=== PATIENT | male | born 1975 | race Two or more races ===

== ENCOUNTER 2018-01-23 09:43 | Day surgery (SDC) | payer OTHER ==
[2018-01-23] MEDS: SOD CHLORIDE 0.9% 1,000 ML IV (10:00)
[2018-01-23] MEDS: CEFAZOLIN 1 GM/50 ML (PMX) 50 ML IVPB (10:00)
[2018-01-23] MEDS ORDERED: POLYMYXIN/BACITRACIN 1L IRRIG (10:50)
[2018-01-23] MEDS ORDERED: MIDAZOLAM 1 MG/ML 2 ML INJ (11:00)
[2018-01-23] MEDS: BUPIVACAINE 0.25% (MPF) 30 ML INJ (11:04)
[2018-01-23 11:35] LABS: ADD MAN DIFF? NO
[2018-01-23 11:42] LABS: ALANINE AMINOTRANSFERASE 45 IU/L (13-69); ALKALINE PHOSPHATASE 131 IU/L (42-121); ANION GAP 10 (8-16); ASPARTATE AMINO TRANSFERASE 53 IU/L (15-46); BILIRUBIN,INDIRECT 1.3 mg/dl (0-1.1); BILIRUBIN,TOTAL 1.3 mg/dl (0.2-1.3); CARBON DIOXIDE 27 mmol/L (21-31); CHLORIDE 109 mmol/L (97-110); GLUCOSE 84 mg/dl (70-220); INR 1.24; PROTIME 15.8 Sec (11.9-14.9); PT RATIO 1.2
[2018-01-23 11:43] LABS: ALBUMIN 3.7 g/dl (3.3-4.9); ALBUMIN/GLOBULIN RATIO 1.02; BLOOD UREA NITROGEN 9 mg/dl (7-20); CREATININE 0.64 mg/dl (0.61-1.24); POTASSIUM 3.9 mmol/L (3.5-5.1); SODIUM 142 mmol/L (135-144); TOTAL PROTEIN 7.3 g/dl (6.1-8.1)
[2018-01-23 11:44] LABS: WHITE BLOOD COUNT 3.7 10^3/ul (4.8-10.8)
[2018-01-23 11:44] LABS: ABNORMAL IP MESSAGE 1; BASOPHILS % 0.5 % (0.0-2.0); EOSINOPHILS # 0.1 10^3/ul (0.0-0.5); EOSINOPHILS % 3.8 % (0.0-7.0); HEMATOCRIT 43.4 % (42.0-52.0); HEMOGLOBIN 14.6 g/dl (14.0-18.0); LYMPHOCYTES # 0.9 10^3/ul (0.8-2.9); LYMPHOCYTES % 25.1 % (15.0-51.0); MEAN CORPUSCULAR HEMOGLOBIN 28.2 pg (29.0-33.0); MEAN CORPUSCULAR HGB CONC 33.6 g/dl (32.0-37.0); MEAN CORPUSCULAR VOLUME 83.9 fl (82.0-101.0); MEAN PLATELET VOLUME 10.7 fl (7.4-10.4); MONOCYTE # 0.5 10^3/ul (0.3-0.9); MONOCYTES % 12.6 % (0.0-11.0); NEUTROPHIL # 2.1 10^3/ul (1.6-7.5); NEUTROPHILS % 57.7 % (39.0-77.0); POSITIVE DIFF @See below; RED BLOOD COUNT 5.17 10^6/ul (4.70-6.10)
[2018-01-23] MEDS ORDERED: GLYCOPYRROLATE 0.4 MG INJ (12:04)
[2018-01-23] MEDS ORDERED: CEFAZOLIN 1 GM INJ (12:04)
[2018-01-23] MEDS ORDERED: PROPOFOL 20 ML (12:04)
[2018-01-23] MEDS ORDERED: NEOSTIGMINE 3 MG/3 ML SYRINGE (12:04)
[2018-01-23] MEDS ORDERED: ROCURONIUM 50 MG INJ (12:04)
[2018-01-23] MEDS ORDERED: LIDOCAINE 2% (SDV) 5 ML INJ (12:04)
[2018-01-23] MEDS ORDERED: ONDANSETRON 4 MG INJ (12:05)
[2018-01-23 12:06] LABS: PLATELET COUNT 46 10^3/UL (140-415)
[2018-01-23 12:07] LABS: HOLD TRANSMISSIONS 1
[2018-01-23] MEDS ORDERED: HYDROmorphONE (0.2 MG/ML) 10ML SYG IV (12:30)
[2018-01-23] MEDS ORDERED: DIPHENHYDRAMINE 50 MG INJ IV (12:30)
[2018-01-23] MEDS ORDERED: METOCLOPRAMIDE 10 MG INJ IV (12:30)
[2018-01-23] MEDS ORDERED: FENTAnyl 50 MCG/ML VIAL IV (12:30)
[2018-01-23] MEDS ORDERED: ONDANSETRON 4 MG INJ IV (12:30)
[2018-01-23] MEDS ORDERED: MEPERIDINE 25 MG INJ IV (12:30)
[2018-01-23 12:47] LABS: PARTIAL THROMBOPLASTIN TIME 37.5 Sec (25.0-35.0)
[2018-01-23] MEDS: HYDROmorphONE (0.2 MG/ML) 10ML SYG IV (13:09)
[2018-01-23] MEDS: HYDROCODONE/APAP (5/325) TAB PO (13:14)
== END 2018-01-23 15:15 | disposition home or self-care (01) ==
LOC: SDS 09:43
DX: K40.91 Unilateral inguinal hernia, without obstruction or gangrene, recurrent (principal)
CPT/HCPCS: 49520; 80053; 85025; 85610; 85730